=== PATIENT | male | born 1955 | race African-American/Black ===

== ENCOUNTER 2021-09-21 13:14 | Emergency (ER) | payer MEDICARE, OTHER ==
[~2021-09-21] VITALS: Ht 172.7 cm; Wt 77.1 kg
[~2021-09-21 13:14] MED LIST: AMLO-496 PO; ASPI-492 PO; HYDR25TA4 PO; METO25TA93 PO
[2021-09-21 16:38] VITALS: BP 124/87
== END 2021-09-21 18:00 | disposition home or self-care (01) ==
LOC: EDBD 13:14 → ER 13:14
DX: S42.002A Fracture of unspecified part of left clavicle, initial encounter for closed fracture (principal); E11.9 Type 2 diabetes mellitus without complications; E78.5 Hyperlipidemia, unspecified; I10 Essential (primary) hypertension; Z86.73 Personal history of transient ischemic attack (TIA), and cerebral infarction without residual deficits; W18.09XA Striking against other object with subsequent fall, initial encounter; Y93.01 Activity, walking, marching and hiking; Y92.89 Other specified places as the place of occurrence of the external cause; Y99.8 Other external cause status
CPT/HCPCS: 70450; 71250; 72125; 73030; 74176; 93005